=== PATIENT | male | born 1975 | race Caucasian/White ===

== ENCOUNTER 2018-01-27 17:06 | Emergency (ER) | payer OTHER ==
[2018-01-27 17:45] LABS: APPEARANCE,URINE Clear (CLEAR); BILIRUBIN,URINE Negative (NEGATIVE); COLOR,URINE Yellow (YELLOW); GLUCOSE, URINE (UA) Negative (NEGATIVE); KETONES,URINE Negative (NEGATIVE); LEUKOCYTE ESTERASE ,URINE Negative (NEGATIVE); NITRATE,URINE Negative (NEGATIVE); OCCULT BLOOD,URINE Negative (NEGATIVE); PH,URINE 6.5 (5.0-8.0); PROTEIN,URINE Negative (NEGATIVE)
[2018-01-27] MEDS ORDERED: ACETAMINOPHEN 325 MG TAB ONE (19:06)
== END 2018-01-27 19:46 | disposition home or self-care (01) ==
LOC: EDH 17:06
DX: N50.811 Right testicular pain (principal); Z72.0 Tobacco use
CPT/HCPCS: 76870; 81003